=== PATIENT | male | born 1990 | race Caucasian/White ===

== ENCOUNTER 2018-10-24 10:07 | Emergency (ER) | payer SELFPAY ==
[~2018-10-24] VITALS: Ht 170.2 cm; Wt 75.4 kg
[2018-10-24 10:19] VITALS: BP 170/116; PULSE 65; RESP 18; Ht 170.2 cm; Wt 75.4 kg
--- NOTE | 2018-10-24 13:31 | ERD ---
ER Documentation Chief Complaint Chief Complaint RIGHT GROIN HERNIA X 2 MONTHS HPI 27-year-old male presents for right groin hernia x2 months. He states that he does heavy lifting with weights and he states he developed a hernia. He denies any pain without movement. He states that with activity he has 6 out of 10 pain. Area. Denies fevers or chills. Denies significant past medical history. No other modifying factors noted, no treatments tried at home. ROS All systems reviewed and are negative except as per history of present illness. PMhx/Soc Medical and Surgical Hx: pt denies Medical Hx, pt denies Surgical Hx Hx Alcohol Use: No Hx Substance Use: No Hx Tobacco Use: No Smoking Status: Never smoker FmHx Family History: No coronary disease Physical Exam Vitals Vital Signs Date Temp Pulse Resp B/P (MAP) Pulse Ox O2 O2 Flow FiO2 Time Delivery Rate 10/24/18 98.2 65 18 170/116 100 10:19 (134) Physical Exam Const: No acute distress Resp: Clear to auscultation bilaterally Cardio: Regular rate and rhythm, no murmurs Abd: Soft, non tender, non distended. Normal bowel sounds, there is a small 3 cm bulge over the right inguinal area that is fully reducible Skin: No petechiae or rashes Back: No midline or flank tenderness Ext: No cyanosis, or edema Neur: Awake and alert Psych: Normal Mood and Affect Procedures/MDM Medical Decision Making: Patient presents with a right inguinal bulge consistent with a right inguinal hernia. The hernia is fully reducible. Patient appeared well on physical exam. No indication for emergency surgery at this point. Patient advised that he will need follow-up with his primary care physician for referral to general surgery as an outpatient. Patient advised to follow up with PCP in 1-2 days. Patient advised to return to ED for new or worsening symptoms. Patient stable on discharge from the ED. Disclaimer: Inadvertent spelling and grammatical errors are likely due to EHR/dictation software use and do not reflect on the overall quality of patient care. Also, please note that the electronic time recorded on this note does not necessarily reflect the actual time of the patient encounter. Departure Diagnosis: Primary Impression: Right inguinal hernia Condition: Fair Patient Instructions: Hernia (Inguinal, Ventral, Umbilical) Referrals: COMMUNITY CLINICS YOU HAVE RECEIVED A MEDICAL SCREENING EXAM AND THE RESULTS INDICATE THAT YOU DO NOT HAVE A CONDITION THAT REQUIRES URGENT TREATMENT IN THE EMERGENCY DEPARTMENT. FURTHER EVALUATION AND TREATMENT OF YOUR CONDITION CAN WAIT UNTIL YOU ARE SEEN IN YOUR DOCTORS OFFICE WITHIN THE NEXT 1-2 DAYS. IT IS YOUR RESPONSIBILITY TO MAKE AN APPOINTMENT FOR FOLOW-UP CARE. IF YOU HAVE A PRIMARY DOCTOR --you should call your primary doctor and schedule an appointment IF YOU DO NOT HAVE A PRIMARY DOCTOR YOU CAN CALL OUR PHYSICIAN REFERRAL HOTLINE AT IF YOU CAN NOT AFFORD TO SEE A PHYSICIAN YOU CAN CHOSE FROM THE FOLLOWING [facility] [address] [facility] [address] [facility] [address] [facility] [address] [facility] [facility] [address] [facility] [facility]. [address] [facility]. [facility] () Usted se zendejas hecho un examen mdico de control que le indica que no est en cory condicin que requiera tratamiento urgente en el Departamento de Emergencia. Un estudio ms profundo y el tratamiento de [place] condicin pueden esperar sin ningn riesgo hasta que usted sea atendida/o en el consultorio de [place] mdico o cory clnica. Es responsabilidad suya arreglar cory kenneth para el seguimiento del yung. MANEJO DE CONDICIONES NO URGENTES EN EL FUTURO 1) Si usted tiene un mdico de atencin primaria: Usted debera llamar a [place] mdico de atencin primaria antes de venir al departamento de emergencia. Despus de las horas de consultorio, [place] doctor o [place] asociado/a est disponible por telfono. El mdico o enfermero de [place] en el servicio telefnico puede asesorarle por sincere medio para atender el problema, o yung contrario se puede programar cory kenneth. 2) Si usted no tiene un mdico de atencin primaria: Llame al mdico o condado institucions de referencia que aparece abajo mulu las horas de consultorio para hacer cory kenneth para que le vean. SI USTED NO PUEDE PAGAR PARA PETRA UN MEDICO puede ir a: [facility] [address] [place] [address] [facility] [address] [place], [place] [id number] [place] [address] [address] [place] [address] [address] Additional Instructions: Call your primary care doctor TOMORROW for an appointment during the next 1-2 days.See the doctor sooner or return here if your condition worsens before your appointment time. Follow up with PCP for referral to general surgery YAA MENESES DO October 24, 2018 13:31
== END 2018-10-24 15:13 | disposition home or self-care (01) ==
LOC: FTE 10:07
DX: K40.90 Unilateral inguinal hernia, without obstruction or gangrene, not specified as recurrent (principal)
CPT/HCPCS: 99282